=== PATIENT | female | born 1940 | race Caucasian/White ===

== ENCOUNTER 2020-04-08 22:31 | Inpatient (IN) | payer MEDICARE, OTHER ==
[~2020-04-08] VITALS: Ht 149.9 cm; Wt 74.8 kg
--- NOTE | 2020-04-08 22:35 | NUR ---
Dr. Carrasco at bedside for MSE
[2020-04-08] MEDS ORDERED: LIDOCAINE VISCUS 2% 15 ML UDC MM ONE (22:45)
[2020-04-08] MEDS ORDERED: FAMOTIDINE. 20 MG/2 ML VIAL IV ONE ×2 (22:45→23:06)
[2020-04-08] MEDS ORDERED: ASPIRIN 81 MG TAB.CHEW PO ONE (22:45)
[2020-04-08] MEDS ORDERED: ONDANSETRON 4 MG/2 ML VIAL IV ONE (22:45)
[2020-04-08] MEDS ORDERED: MAG HYDROX/AL HYDROX/SIMETH 30 ML LIQUID UDC PO ONE (22:45)
[2020-04-08] MEDS ORDERED: ASPIRIN 81 MG TAB.CHEW ONE (23:05)
[2020-04-08] MEDS ORDERED: LIDOCAINE VISCUS 2% 15 ML UDC ONE (23:05)
[2020-04-08] MEDS ORDERED: MAG HYDROX/AL HYDROX/SIMETH 30 ML LIQUID UDC ONE (23:05)
[2020-04-08] MEDS ORDERED: ONDANSETRON 4 MG/2 ML VIAL ONE (23:05)
[2020-04-08 23:10] LABS: BASOPHILS # (AUTO) 0.1 K/uL (0.0-8.0); BASOPHILS % (AUTO) 0.7 % (0.0-2.0); EOSINOPHILS # (AUTO) 0.4 K/uL (0.0-0.7); EOSINOPHILS % (AUTO) 3.1 % (0.0-7.0); HEMATOCRIT 36.5 % (31.2-41.9); HEMOGLOBIN 11.8 g/dL (10.9-14.3); LYMPHOCYTES # (AUTO) 3.3 K/uL (20.0-40.0); LYMPHOCYTES % (AUTO) 28.6 % (20.5-51.5); MEAN CORPUSCULAR HEMOGLOBIN 28.4 uug (24.7-32.8); MEAN CORPUSCULAR HGB CONC 32 g/dL (32.3-35.6); MEAN CORPUSCULAR VOLUME 87.8 fL (75.5-95.3); MONOCYTES # (AUTO) 1.1 K/uL (2.0-10.0); MONOCYTES % (AUTO) 9.5 % (0.0-11.0); NEUTROPHILS # (AUTO) 6.7 K/uL (1.8-8.9); NEUTROPHILS % (AUTO) 58.1 % (38.5-71.5); PLATELET COUNT (AUTO) 244 K/uL (179-408); RED BLOOD CELL COUNT(AUTO) 4.16 MIL/uL (3.63-4.92); WHITE BLOOD COUNT (AUTO) 11.5 K/uL (3.8-11.8)
[2020-04-08 23:18] LABS: CREATININE 1.1 mg/dL (0.6-1.3); POTASSIUM 4.5 mmol/L (3.5-5.1)
--- NOTE | 2020-04-08 23:32 | NUR ---
Dr. Carrasco at bedside for MSE
[2020-04-08 23:34] LABS: BILIRUBIN,DIRECT 0.1 mg/dL (0.0-0.2); BILIRUBIN,TOTAL 0.4 mg/dL (0.2-1.0); TOTAL PROTEIN, SERUM 8.4 g/dL (6.4-8.2)
--- NOTE | 2020-04-09 00:01 | NUR ---
pt in bed. HOB elevated SpO2 noted at 88-89% RA No s/s of respiratory distress. MD made aware MD came to asses pt. PLaced on 2L via NC
[2020-04-09] MEDS ORDERED: HYDR-4077 PO (00:07)
[2020-04-09] MEDS ORDERED: ESOM40CA PO (00:07)
[2020-04-09] MEDS ORDERED: ROSU10TA2 PO (00:07)
[2020-04-09] MEDS ORDERED: EZET10TA15 PO (00:07)
[2020-04-09] MEDS ORDERED: DILT180C90 PO (00:07)
[2020-04-09] MEDS ORDERED: LEVO88TA5 PO (00:07)
[2020-04-09] MEDS ORDERED: METO5TAB7 PO (00:07)
[2020-04-09] MEDS ORDERED: FENTANYL CITRATE 100 MCG/2 ML AMPUL IV ONE (00:15)
--- NOTE | 2020-04-09 00:15 | NUR ---
pt place on isolation precautions per MD order
[2020-04-09] MEDS ORDERED: FENTANYL CITRATE 100 MCG/2 ML AMPUL ONE (00:17)
[2020-04-09] MEDS ORDERED: IV NS 1000 ML 1,000 ML IV PRN (00:46)
--- NOTE | 2020-04-09 00:46 | NUR ---
Dr. Carrasco on panel call with MIRNA Etienne
[2020-04-09] MEDS ORDERED: Z GUARD REMEDY PASTE 57 GM TUBE TOP PRN (01:00)
[2020-04-09] MEDS ORDERED: ACETAMINOPHEN 325 MG TABLET PO PRN (01:00)
[2020-04-09] MEDS ORDERED: MAGNESIUM HYDROXIDE 30 ML LIQUID UDC PO PRN (01:00)
[2020-04-09] MEDS ORDERED: ONDANSETRON 4 MG/2 ML VIAL IV PRN (01:00)
[2020-04-09 01:25] LABS: FERRITIN 58 ng/mL (8-252); LACTATE DEHYDROGENASE 225 U/L (81-234)
--- NOTE | 2020-04-09 02:01 | NUR ---
pt in bed, sleeping comfortably SpO2 at 99%. On 2L via NC VS: BP: 146/69, HR 83 Afebrile No s/s of distress Isolation precautions observed
--- NOTE | 2020-04-09 06:58 | NUR ---
report given to TAYO Dixon
--- NOTE | 2020-04-09 08:30 | NUR ---
PATIENT IS ALERT, ORIENTED X4, NO SOB,R CATARINO EVEN NONLABORED, SKIN WARM AND DRY TO TOUCH, NO SKIN ISSUES NOTED, EXCEPT BLACK AND BROWN COLORED SKIN MOLES. PATIENT DENIED ANY CHEST PAIN AT THIS TIME, KEPT NPO ORDERED.
[2020-04-09] MEDS ORDERED: METOLAZONE 2.5 MG TABLET PO SCH (09:00)
[2020-04-09] MEDS ORDERED: Medication Not On Formulary EA (Rosuvastatin Calcium (Crestor) 1 TAB) PO SCH (09:00)
[2020-04-09] MEDS ORDERED: DILTIAZEM HCL CD 180 MG CAP.SR.24H PO SCH (09:00)
[2020-04-09] MEDS ORDERED: ASPIRIN 325 MG TABLET PO SCH (09:00)
[2020-04-09] MEDS ORDERED: Medication Not On Formulary EA (Esomeprazole Mag Trihydrate (Nexium) 40 MG) PO SCH (09:00)
[2020-04-09] MEDS: hydrALAZINE HCL 50 MG TABLET PO SCH ×2 (09:00→09:47)
[2020-04-09] MEDS: LEVOTHYROXINE SODIUM 88 MCG TABLET PO SCH (09:46)
[2020-04-09] MEDS: PANTOPRAZOLE SODIUM 40 MG VIAL IV SCH (09:46)
--- NOTE | 2020-04-09 11:00 | NUR ---
patient noted with low blood pressure, taken twice, 87/40, and 90/40, however asymptomatic spoke to dr jefferson, with order to give bolus IV. order noted
[2020-04-09] MEDS ORDERED: IV NORMAL SALINE 500 ML BAG IV ONE (11:15)
[2020-04-09] MEDS ORDERED: IV D5W-0.45% NS 1000 ML BAG IV PRN (11:15)
[2020-04-09] MEDS ORDERED: IV NORMAL SALINE 500 ML IV ONE (11:15)
[2020-04-09 11:42] VITALS: BP 90/40
[2020-04-09] MEDS: IV D5 1/2 NS 1000 ML 1,000 ML IV PRN (13:02)
--- NOTE | 2020-04-09 15:48 | NUR ---
patient is laying in bed, no distress noted, no sob, resp even nonlabored,skin warm and dry to touch, able to understand and communicate in [place], kept NPO as ordered, able to turn and reposition herself, ambulatory with assist, no skin issues noted, inspected skin, no skin issues noted at sacral or coccyx area, assisted with needs. D5, 1/2 NS running at 90ml per hour.
[2020-04-09 16:11] VITALS: BP 98/67
--- NOTE | 2020-04-09 16:28 | NUR ---
patient noted with vitals, temp 100.1, blood pressure 98/67, pulse 95, 2 sat at 2 liter is 95%, dr FRANCISCO made aware, with order to start patient on rocephin, ordered, continue to monitor patient
--- NOTE | 2020-04-09 16:54 | NUR ---
blood culture and lactic acid ordered
[2020-04-09] MEDS ORDERED: CEFTRIAXONE 1 G in IV DEXTROSE 5% 50 ML IV SCH (17:00)
--- NOTE | 2020-04-09 18:44 | NUR ---
patient refused SCD pumps, ambulates frequently with contact guard
[2020-04-09 20:00] VITALS: BP 110/52
--- NOTE | 2020-04-09 20:00 | NUR ---
Patient received into care, sitting up in chair, talking on mobile phone. Patient has no complaints of pain or discomfort at this time and IV site patent and intact. All safety, fall, and isolation precautions are in place. Call light and personal items are within reach. Will continue to monitor and assess.
[2020-04-09 20:15] VITALS: BP 110/32
[2020-04-09] MEDS ORDERED: EZETIMIBE 10 MG TABLET PO SCH (21:00)
[2020-04-09] MEDS ORDERED: ATORVASTATIN 20 MG TABLET PO SCH (21:00)
[2020-04-10] VITALS: BP 112/50
[2020-04-10 04:15] VITALS: BP 108/45
--- NOTE | 2020-04-10 06:00 | NUR ---
Patient slept intermittently throughout night with no complaints of pain or discomfort verbalized or noted/observed by this nurse. All prescribed medications provided as ordered and tolerated well, with no adverse side effects verbalized by patient or noted/observed by this nurse. Right AC 20g IV cath is intact and patent with D5-1/2 NS running at 90mL/hr. All safety, fall, and isolation precautions remain in place. Call light and personal items remain within reach at all times.
[2020-04-10 06:49] LABS: BASOPHILS % (AUTO) 0.5 % (0.0-2.0); EOSINOPHILS # (AUTO) 0.3 K/uL (0.0-0.7); EOSINOPHILS % (AUTO) 3.4 % (0.0-7.0); HEMATOCRIT 32.1 % (31.2-41.9); HEMOGLOBIN 10.4 g/dL (10.9-14.3); LYMPHOCYTES % (AUTO) 20.5 % (20.5-51.5); MEAN CORPUSCULAR HEMOGLOBIN 28.4 uug (24.7-32.8); MEAN CORPUSCULAR HGB CONC 32 g/dL (32.3-35.6); MEAN CORPUSCULAR VOLUME 87.9 fL (75.5-95.3); MONOCYTES % (AUTO) 10.7 % (0.0-11.0); NEUTROPHILS # (AUTO) 6.3 K/uL (1.8-8.9); NEUTROPHILS % (AUTO) 64.9 % (38.5-71.5); PLATELET COUNT (AUTO) 197 K/uL (179-408); RED BLOOD CELL COUNT(AUTO) 3.65 MIL/uL (3.63-4.92); WHITE BLOOD COUNT (AUTO) 9.7 K/uL (3.8-11.8)
[2020-04-10] MEDS ORDERED: SWABABLE VALVE TRANSFER SET EA MC ONE (07:03)
[2020-04-10] MEDS ORDERED: IV NORMAL SALINE 250 ML IV ONE (07:03)
[2020-04-10] MEDS ORDERED: IOHEXOL 350 100 ML INFUS..BTL ONE (07:03)
[2020-04-10 07:05] LABS: ALANINE AMINOTRANSFERASE 34 U/L (14-59); ALKALINE PHOSPHATASE 52 U/L (50-136); ASPARTATE AMINOTRANSFERASE 36 U/L (15-37); BILIRUBIN,TOTAL 0.3 mg/dL (0.2-1.0); CARBON DIOXIDE 33 mmol/L (21-32); CHLORIDE 103 mmol/L (98-107); CREATININE 0.9 mg/dL (0.6-1.3); GLUCOSE 115 mg/dL (74-106); MAGNESIUM 2.3 mg/dL (1.8-2.4); PHOSPHOROUS 3.1 mg/dL (2.5-4.9); POTASSIUM 4.6 mmol/L (3.5-5.1); UREA NITROGEN, BLOOD 17 mg/dL (7-18)
[2020-04-10 07:13] LABS: THYROID STIMULATING HORMONE 0.361 mIU/mL (0.358-3.740)
[2020-04-10 07:17] LABS: LIPASE 1790 U/L (73-393)
--- NOTE | 2020-04-10 08:00 | NUR ---
received pt. resting in bed alert oriented x3. pt. denies pain/ discomfort. pt. denies sob/ difficulty breathing. pt. is on 2 L NC saturating highest 93. pt. does not have cough. pt. does not have fever. pt. going to CT scan consent form signed. IV in R AC 20 gauge intact patent running prescribed fluid. safety measures in place. call light within reach. will continue to monitor pt.
[2020-04-10] MEDS: PANTOPRAZOLE SODIUM 40 MG VIAL IV SCH (09:26)
[2020-04-10] MEDS: LEVOTHYROXINE SODIUM 88 MCG TABLET PO SCH (09:26)
[2020-04-10] MEDS: ASPIRIN 81 MG TAB.CHEW PO SCH (09:26)
[2020-04-10] MEDS: IV D5 1/2 NS 1000 ML 1,000 ML IV PRN (09:37)
--- NOTE | 2020-04-10 10:00 | NUR ---
Dr. Amato gave TO to switch diet to clear liquids. pt. is not nauseous or vomiting. pt. took all AM medication.
--- NOTE | 2020-04-10 11:54 | NUR ---
attempted to wean pt. off oxygen unsuccessful. pt. saturating 90-93% on 2 L. On room air oxygen is in mid 80s. pt. resting in bed denies pain. vital signs stable. all needs met. safety measures in place. call light within reach.
[2020-04-10 12:00] VITALS: BP 116/52
--- NOTE | 2020-04-10 12:08 | NUR ---
phone call from [facility] to report results of Chest thorax CTA. results are uploaded.
[2020-04-10] MEDS ORDERED: FUROSEMIDE 20 MG/2 ML VIAL IV ONE ×2 (14:45→19:00)
[2020-04-10] MEDS: PIPERACILLIN SODIUM/TAZOBACTAM 3.375 G in IV DEXTROSE 5% 50 ML IV SCH ×2 (15:10→22:00)
[2020-04-10 16:41] VITALS: BP 106/47
[2020-04-10 20:00] VITALS: BP 127/82
[2020-04-11] VITALS: BP 138/60
[2020-04-11 04:00] VITALS: BP 148/60
--- NOTE | 2020-04-11 04:52 | NUR ---
PATIENT AAOX3. NO S/S OF ACUTE DISTRESS. V/S STABLE THROUGHOUT SHIFT. DENIES PAIN OR SOB. ANTIBIOTICS ADMINISTERED AND TOLERATED WELL. PIV INTACT AND PATENT. 2L NC SAT 95%. SAFETY MEASURES IN PLACE. WILL CONTINUE TO MONITOR.
[2020-04-11] MEDS: PIPERACILLIN SODIUM/TAZOBACTAM 3.375 G in IV DEXTROSE 5% 50 ML IV SCH ×3 (05:10→22:11)
[2020-04-11 06:34] LABS: BASOPHILS # (AUTO) 0.1 K/uL (0.0-8.0); BASOPHILS % (AUTO) 0.7 % (0.0-2.0); EOSINOPHILS # (AUTO) 0.5 K/uL (0.0-0.7); EOSINOPHILS % (AUTO) 5.5 % (0.0-7.0); HEMATOCRIT 32.5 % (31.2-41.9); HEMOGLOBIN 10.5 g/dL (10.9-14.3); LYMPHOCYTES # (AUTO) 2.1 K/uL (20.0-40.0); LYMPHOCYTES % (AUTO) 24.4 % (20.5-51.5); MEAN CORPUSCULAR HEMOGLOBIN 28.2 uug (24.7-32.8); MEAN CORPUSCULAR HGB CONC 32 g/dL (32.3-35.6); MONOCYTES % (AUTO) 11.6 % (0.0-11.0); NEUTROPHILS # (AUTO) 5.1 K/uL (1.8-8.9); NEUTROPHILS % (AUTO) 57.8 % (38.5-71.5); PLATELET COUNT (AUTO) 219 K/uL (179-408); RED BLOOD CELL COUNT(AUTO) 3.73 MIL/uL (3.63-4.92); WHITE BLOOD COUNT (AUTO) 8.8 K/uL (3.8-11.8)
--- NOTE | 2020-04-11 07:30 | NUR ---
Patient in bed, awake ,alert and verbally responsive. farsi speaking. On Oxygen at 2L via Nasal canula saturating 96%. No complain of Pain or discomfort. Patient will have a MRCP w/o contrast at [facility] 0900. remains NPO, Kept clean and comfortable. Will continue to monitor.
[2020-04-11] MEDS ORDERED: ALPRAZOLAM 0.5 MG TABLET PO ONE (08:30)
--- NOTE | 2020-04-11 09:00 | NUR ---
Patient was Picked up by 2 EMT for MRCP w/o contrast SOH in stable condition.
[2020-04-11 10:01] LABS: BILIRUBIN,TOTAL 0.5 mg/dL (0.2-1.0); CREATININE 1.1 mg/dL (0.6-1.3); MAGNESIUM 2.1 mg/dL (1.8-2.4); PHOSPHOROUS 4.1 mg/dL (2.5-4.9); POTASSIUM 4.4 mmol/L (3.5-5.1); TOTAL PROTEIN, SERUM 6.9 g/dL (6.4-8.2)
[2020-04-11] MEDS: ASPIRIN 81 MG TAB.CHEW PO SCH (10:16)
[2020-04-11] MEDS: PANTOPRAZOLE SODIUM 40 MG VIAL IV SCH (10:17)
[2020-04-11] MEDS: LEVOTHYROXINE SODIUM 88 MCG TABLET PO SCH (10:17)
[2020-04-11 11:46] VITALS: BP 109/52
--- NOTE | 2020-04-11 13:30 | NUR ---
called MIRNA wiggins and relayed MRCP w/o contrast result, per Jolly BRADLEY she can start Clear liquid diet.
[2020-04-11] MEDS ORDERED: FUROSEMIDE 20 MG/2 ML VIAL IV ONE (14:45)
--- NOTE | 2020-04-11 15:30 | NUR ---
Seen and examined by MIRNA Azevedo
[2020-04-11 16:33] VITALS: BP 117/49
--- NOTE | 2020-04-11 18:18 | NUR ---
Patient in bed, awake and verbally responsive. On Oxygen at 2 L via nasal canula, saturating 96%. No complain of Pain or discomfort. No complain of nausea or vomiting. patient on Clear liquid diet, tolerated well. All needs attended and met. kept clean and comfortable. Will endorse to Oncoming Nurse.
[2020-04-11 20:00] VITALS: BP 126/46
[2020-04-12 00:52] VITALS: BP 139/59
--- NOTE | 2020-04-12 04:16 | NUR ---
patient slept intermittently. no s/s of acute distress. v/s stable. no n/v with clear liquid before midnight. NPO after midnight. denies pain or any discomfort. on NC 2L. PIV intact and patent. all medications administered. safety precautions in place. will continue to monitor.
--- NOTE | 2020-04-12 04:19 | NUR ---
urine sample sent to lab for urinalysis for possible procedure.
[2020-04-12 04:28] VITALS: BP 137/53
[2020-04-12] MEDS: PIPERACILLIN SODIUM/TAZOBACTAM 3.375 G in IV DEXTROSE 5% 50 ML IV SCH ×3 (05:19→21:04)
[2020-04-12] MEDS: LEVOTHYROXINE SODIUM 88 MCG TABLET PO SCH (06:03)
[2020-04-12 06:42] LABS: BASOPHILS # (AUTO) 0.1 K/uL (0.0-8.0); BASOPHILS % (AUTO) 0.9 % (0.0-2.0); EOSINOPHILS # (AUTO) 0.7 K/uL (0.0-0.7); HEMATOCRIT 33.5 % (31.2-41.9); LYMPHOCYTES # (AUTO) 1.7 K/uL (20.0-40.0); LYMPHOCYTES % (AUTO) 24.2 % (20.5-51.5); MEAN CORPUSCULAR HEMOGLOBIN 28.6 uug (24.7-32.8); MEAN CORPUSCULAR HGB CONC 33 g/dL (32.3-35.6); MEAN CORPUSCULAR VOLUME 86.8 fL (75.5-95.3); MONOCYTES # (AUTO) 0.9 K/uL (2.0-10.0); MONOCYTES % (AUTO) 13.6 % (0.0-11.0); NEUTROPHILS # (AUTO) 3.5 K/uL (1.8-8.9); NEUTROPHILS % (AUTO) 51.3 % (38.5-71.5); PLATELET COUNT (AUTO) 235 K/uL (179-408); RED BLOOD CELL COUNT(AUTO) 3.85 MIL/uL (3.63-4.92); WHITE BLOOD COUNT (AUTO) 6.9 K/uL (3.8-11.8)
[2020-04-12 07:06] LABS: BILIRUBIN,TOTAL 0.4 mg/dL (0.2-1.0); POTASSIUM 4.1 mmol/L (3.5-5.1); TOTAL PROTEIN, SERUM 7.4 g/dL (6.4-8.2)
[2020-04-12] MEDS: PANTOPRAZOLE SODIUM 40 MG VIAL IV SCH (08:00)
[2020-04-12 08:21] LABS: *BILIRUBIN,URIN NEGATIVE (NEGATIVE); *BLOOD, URINE NEGATIVE (NEGATIVE); *CLARITY,URINE CLEAR (CLEAR); *COLOR,URINE YELLOW (YELLOW); *KETONES,URINE NEGATIVE (NEGATIVE); *UROBILINOGEN,URINE 0.2 E.U./dl (NORMAL); LEUKOCYTE ESTERASE ,URINE NEGATIVE (NEGATIVE); NITRITE, URINE NEGATIVE (NEGATIVE); PH,URINE 5.5 (5.0-8.0); UGLUCOSE NEGATIVE (NEGATIVE)
[2020-04-12] MEDS: ASPIRIN 81 MG TAB.CHEW PO SCH (08:54)
[2020-04-12] MEDS ORDERED: FUROSEMIDE 20 MG/2 ML VIAL IV ONE ×2 (10:45→12:00)
[2020-04-12 11:30] VITALS: BP 106/57
[2020-04-12 16:00] VITALS: BP 103/54
--- NOTE | 2020-04-12 20:00 | NUR ---
PATIENT ALERT ORIENTED, NO SOB NO CHEST PAIN, ON TELE MONITOR SINUS RYTHM 72. PATIENT HAS EPISODES OF LOW BP 104/32 EARLIER, BUT NO DIZZINESS, NO HEADACHES. PATIENT JUST WOKE UP FROM THE NAP, KEPT FOOT OF THE BED ELEVATED, RECHECK BP 101/48, ASYMPTOMATIC, PATIENT CONCERNED ABOUT THE BP WHEN SHE GO HOMES, TAUGHT PATIENT THAT SHE NEEDS TO CHECK HER BP BEFORE TAKING HTN MEDS TO AVOID LOW BP, PATIENT DAUGHTER AT THE PHONE AND TAUGHT HOW TO TAKE PATIENT BP MEDS AT HOME. CONT TO MONITOR.
[2020-04-12 20:21] VITALS: BP 103/36
[2020-04-12 20:35] VITALS: BP 101/48
[2020-04-12] MEDS ORDERED: ATORVASTATIN 20 MG TABLET PO SCH (21:00)
--- NOTE | 2020-04-13 | NUR ---
BP 107/88, STABLE NO HEADACHES, NO DIZZINESS, CONT TO MONITOR.
[2020-04-13 01:06] VITALS: BP 107/78
[2020-04-13 04:59] VITALS: BP 124/60
[2020-04-13] MEDS: PIPERACILLIN SODIUM/TAZOBACTAM 3.375 G in IV DEXTROSE 5% 50 ML IV SCH (05:15)
[2020-04-13] MEDS: LEVOTHYROXINE SODIUM 88 MCG TABLET PO SCH (06:01)
--- NOTE | 2020-04-13 06:41 | NUR ---
PATIENT ASLEEP BUT EASILY AROUSABLE NO SOB NO CHEST PAIN. PATIENT HAS NO COMPLAIN OF PAIN, PATIENT VOIDING FREELY, CONT TO MONITOR.
[2020-04-13 08:00] VITALS: BP 116/41
[2020-04-13] MEDS ORDERED: METFORMIN HCL 500 MG TABLET PO SCH (08:00)
[2020-04-13] MEDS: PANTOPRAZOLE SODIUM 40 MG VIAL IV SCH (08:43)
[2020-04-13] MEDS: ASPIRIN 81 MG TAB.CHEW PO SCH (08:43)
[2020-04-13] MEDS ORDERED: FLUTICASONE/VILANTEROL 1 EACH BLST.W.DEV INH SCH (09:00)
--- NOTE | 2020-04-13 11:00 | NUR ---
Nasal cannula removed, saturating at 94% with no SOB or distress noted at this time
[2020-04-13] MEDS ORDERED: ASPI81TA31 PO (11:42)
[2020-04-13] MEDS ORDERED: LEVO75TA7 PO (11:42)
[2020-04-13] MEDS ORDERED: CEPH-570 PO (11:42)
[2020-04-13 11:53] VITALS: BP 117/48
--- NOTE | 2020-04-13 15:10 | NUR ---
Pt left unit via wheelchair accompanied by Yumiko AYALA. On RA 94% with no SOB or distress noted. Telemetry box, IV on left arm and ID band removed. DC forms and instructions given and signed. Emphasized the importance of follow-up care and appointments as written in MD DC notes, it was highlighted, verbalized instructions. right of way manager also made daughter aware. Belongings list signed and all accounted for.
[2020-04-14] MEDS ORDERED: PANTOPRAZOLE SODIUM 40 MG TABLET.DR PO SCH (07:00)
== END 2020-04-13 15:10 | disposition home health service (06) | DRG 438 ==
LOC: ER 22:34 → TELE3 04-09 08:28
PROVIDERS: ADMIT Internal Medicine; ATTEND Internal Medicine
DX: K85.10 Biliary acute pancreatitis without necrosis or infection (principal); I50.31 Acute diastolic (congestive) heart failure; K81.0 Acute cholecystitis; K86.2 Cyst of pancreas; D68.69 Other thrombophilia; E03.9 Hypothyroidism, unspecified; Z79.890 Hormone replacement therapy; I11.0 Hypertensive heart disease with heart failure; E66.9 Obesity, unspecified; Z68.33 Body mass index [BMI] 33.0-33.9, adult; E11.65 Type 2 diabetes mellitus with hyperglycemia; E78.5 Hyperlipidemia, unspecified; F17.210 Nicotine dependence, cigarettes, uncomplicated; K21.9 Gastro-esophageal reflux disease without esophagitis; J44.9 Chronic obstructive pulmonary disease, unspecified; M19.90 Unspecified osteoarthritis, unspecified site; K44.9 Diaphragmatic hernia without obstruction or gangrene; R07.9 Chest pain, unspecified; I71.9 Aortic aneurysm of unspecified site, without rupture; I35.0 Nonrheumatic aortic (valve) stenosis
CPT/HCPCS: 36415; 70030-TC; 71045; 71275; 74181; 83605; 83615; 83690; 83735; 84100; 84443; 85025; 85610; 85651; 86140; 86301; 87040; 87086; 93005; 93307; C9113; G0378; J0696; J1940; J2405; J2543; J3010; J3490; J7030; J7050; J7060; Q9967; U0003-CS